=== PATIENT | male | born 1975 | race Caucasian/White ===

== ENCOUNTER → 2016-12-02 | Outpatient (CLI) | payer OTHER ==
[~2016-12-02] MED LIST: AMLO10TA2 PO; MOBI7.5T10 PO; MULT1TAB18 PO; NEXI40CA PO
== END | disposition home or self-care (01) ==
LOC: M SMT PRO 09:31
PROVIDERS: ATTEND Urology
DX: N48.6 Induration penis plastica (principal)

== ENCOUNTER 2016-12-04 16:30 | Emergency (ER) | payer OTHER ==
[~2016-12-04] VITALS: Ht 175.3 cm; Wt 86.2 kg
[2016-12-04] MEDS ORDERED: AMLO10TA2 PO (16:43)
[2016-12-04] MEDS ORDERED: MOBI7.5T10 PO (16:44)
[2016-12-04] MEDS ORDERED: NEXI40CA PO (16:45)
[2016-12-04] MEDS ORDERED: MULT1TAB18 PO (16:45)
[2016-12-04] MEDS ORDERED: ACETAMINOPHEN 325 MG TAB PO ONE (18:15)
[2016-12-04] MEDS ORDERED: hydroCHLOROthiazide 12.5 MG CAPSULE PO ONE (18:15)
[2016-12-04 18:34] LABS: BASO % 0.7 % (0.0-1.0); EOS # 0.2 K/mm3 (0.0-0.50); EOS % 3.6 % (0.0-3.0); LARGE UNSTAINED CELL # 0.1 K/mm3 (0.0-0.4); LARGE UNSTAINED CELL % 1.8 % (0.0-4.0); LYMPH # 1.8 K/mm3 (1.5-4.5); LYMPH % 34.2 % (24.0-44.0); MEAN CORPUSCULAR HEMOGLOBIN 31.7 pg (27.0-33.0); MEAN CORPUSCULAR HGB CONC 35.5 g/dl (32.0-36.5); MEAN CORPUSCULAR VOLUME 89.2 fl (80.0-96.0); MONO # 0.4 K/mm3 (0.0-0.8); MONO % 7.1 % (0.0-5.0); NEUTROPHILS # 2.7 K/mm3 (1.8-7.7); NEUTROPHILS % 52.7 % (36.0-66.0); PLATELET COUNT, AUTOMATED 228 k/mm3 (150-450); RED CELL DISTRIBUTION WIDTH 12.3 % (11.5-14.5); WHITE BLOOD COUNT 5.1 K/mm3 (4.0-10.0)
[2016-12-04 18:54] LABS: ANION GAP 5 MEQ/L (8-16); BLOOD UREA NITROGEN 23 MG/DL (7-18); CALCIUM LEVEL 9.2 MG/DL (8.5-10.1); CARBON DIOXIDE LEVEL 32 MEQ/L (21-32); CHLORIDE LEVEL 107 MEQ/L (98-107); CREATININE FOR GFR 1.25 MG/DL (0.70-1.30); GLOMERULAR FILTRATION RATE > 60.0 (>60); GLUCOSE, FASTING 111 MG/DL (70-105); POTASSIUM SERUM 3.9 MEQ/L (3.5-5.1); SODIUM LEVEL 144 MEQ/L (136-145)
[2016-12-04 19:28] VITALS: BP 130/84
== END 2016-12-04 20:22 | disposition home or self-care (01) ==
LOC: M ED 17:34
DX: I10 Essential (primary) hypertension (principal); K21.9 Gastro-esophageal reflux disease without esophagitis; Z87.442 Personal history of urinary calculi; Z79.899 Other long term (current) drug therapy; Z88.0 Allergy status to penicillin; Z87.891 Personal history of nicotine dependence

== ENCOUNTER → 2016-12-16 | Outpatient (CLI) | payer OTHER ==
--- NOTE | 2016-12-18 10:16 | ECHO ---
DATE OF SERVICE: 12/16/2016 REFERRING PROVIDER: AUERA Tobin PATIENT LOCATION: Outpatient. REASON FOR THE ECHOCARDIOGRAM: Abnormal EKG. 2D MEASUREMENTS: IVS: 1.2 cm LV: 4.2 cm LVPW: 1.2 cm LA: 3.7 cm Aorta: 3.2 cm IVC: 1.6 cm DOPPLER MEASUREMENTS: Peak velocity across the aortic valve: 1.2 m/s Peak velocity across the LVOT: 0.74 m/s Mitral E: 0.50 Mitral A: 0.58 with a ratio of 0.9 Maximum tricuspid valve velocity: m/s 2D COMMENTS: 1. Normal left ventricular size, wall thickness, and normal global left ventricular systolic function. The estimated global left ventricular systolic ejection fraction is 60-65%. 2. Normal left atrium. Normal right atrium and left ventricle. 3. The atrial septum appeared to be normal without evidence of defect or shunt. 4. Normal aortic root. 5. No pericardial effusion seen. 6. The aortic valve, mitral valve, tricuspid valve, and pulmonic valve appear to be normal. The proximal pulmonary artery branches were not well visualized. 7. The inferior vena cava was normal in size, central venous pressure is most likely normal. DOPPLER: It detects trace mitral regurgitation, trace tricuspid regurgitation, and trace pulmonic regurgitation. The calculated pulmonary artery systolic pressure appeared to be normal. Abnormal relaxation pattern was noted across the mitral valve leaflets as well as the mitral valve annulus, consistent with a delayed relaxation. IMPRESSION: 1. Normal global left ventricular systolic function. There are features of left ventricular diastolic dysfunction, grade 1. 2. Trace mitral regurgitation. 3. Trace tricuspid regurgitation.
== END ==
LOC: M CARPUL 09:14
PROVIDERS: ATTEND Physician Assistant
DX: I10 Essential (primary) hypertension (principal); I34.0 Nonrheumatic mitral (valve) insufficiency; I36.1 Nonrheumatic tricuspid (valve) insufficiency